=== PATIENT | female | born 1975 | race Caucasian/White ===

== ENCOUNTER 2023-01-15 12:50 | Outpatient (CLI) | payer BC ==
[2023-01-15] VITALS (17 sets, daily range): BP systolic 91–121; BP diastolic 54–90
== END 2023-01-15 23:59 | disposition home or self-care (01) ==
LOC: CARD DIAG 12:50
PROVIDERS: ATTEND Internal Medicine Cardiovascular Disease
DX: R42 Dizziness and giddiness (principal)
CPT/HCPCS: 93660